=== PATIENT | male | born 1995 | race Caucasian/White ===

== ENCOUNTER 2020-02-21 12:07 | Emergency (ER) | payer SELFPAY ==
[2020-02-21 12:10] VITALS: BP 123/73; PULSE 91; RESP 18; TEMP 36.7; O2SAT 99; BMI 20.3
--- NOTE | 2020-02-21 12:10 | ED_ITS ---
HPI - Ear Problem General: Chief complaint: General Medical Stated complaint: rash/earache Time Seen by Provider: 02/21/20 12:10 Source: patient Mode of arrival: ambulatory Limitations: no limitations History of Present Illness: HPI Narrative: Patient comes in with a patchy rash that extends all over his body but spares the soles and palms. Patient reports that started about 6 to 8 weeks ago but he is also felt ill and tired since that time. Patient appears well. Patient appears in no acute distress. Patient denies any recent tick bites, and denies any fever at this time. MD Complaint: ear pain Location: left ear Review of Systems General: Reports: 10 or more systems reviewed and unremarkable except in HPI and below ENMT: Reports: change in hearing (left) PFSH ED PFSH: Social History Smoking and tobacco status: former smoker Physical Exam Const: COMMON NORMALS: no acute distress and patient oriented x3 GENERAL APPEARANCE: cooperative HENMT: COMMON NORMALS: normocephalic, TM's normal bilaterally and Normal external nose present HEAD & SCALP: normal to inspection and normocephalic NOSE: Normal external nose present TYMPANIC MEMBRANE: TM's normal bilaterally and other (Wax is noted to the 7 o'clock position of the tympanic membrane partially occluding the lower third of the membrane in the area. Otherwise the tympanic membrane is clear without any signs of redness.) MOUTH: Normal oral and palatal mucosa present THROAT: posterior oropharynx normal Eye: GENERAL EYE: appearance normal, both eyes and all related structures Neck/C-Spine: COMMON NORMALS: full ROM Lymph: LYMPHATIC: no lymphadenopathy noted Chest: COMMONS NORMALS: normal inspection of the chest Resp: COMMON NORMALS: normal respiratory effort EFFORT & INSPECTION: Yes able to speak in complete sentences Cardio: COMMON NORMALS: regular rate and regular rhythm RATE: regular rate RHYTHM: regular rhythm GI: COMMON NORMALS: non-tender : COMMON NORMALS: Yes no CVA tenderness BLADDER/KIDNEY EXAM: Yes no CVA tenderness Back/Pelvis: COMMON NORMALS: no CVA tenderness and thoracic and lumbar spine normal to inspection Extremity: COMMON NORMALS: normal to inspection Neuro: COMMON NORMALS: patient oriented x3 and moves all extremities Psych: COMMON NORMALS: mental status grossly normal and cooperative Skin: NARRATIVE SKIN EXAM: Patient has a generalized plaque-like rash to the entire body. Appears psoriatic. No rashes noted to the palms or soles of the feet. Respirations are even lungs are clear to auscultation. Course Vital Signs: Vital signs: Vital Signs Temperature 98.0 F 02/21/20 12:10 Pulse Rate 91 02/21/20 12:10 Respiratory Rate 18 02/21/20 12:10 Blood Pressure 123/73 02/21/20 12:10 Pulse Oximetry 99 02/21/20 12:10 MDM - Ear MDM Narrative: Medical decision making narrative: Patient comes in today with persistent rash for about 6 to 8 weeks. Patient cannot recall a tick bite prior to the rash or 1 the season so far. Patient does report a sore throat about 10 to 12 weeks ago. Respirations are even lungs are clear to auscultation. Rash has some mild plaque to it but otherwise encompasses the body extremities neck and extends up into the scalp. Vital signs are normal. Patient does have some significant cervical lymphadenopathy. Differential diagnosis includes guttate psoriasis, pityriasis rosea, [employer] spotted fever, or secondary syphilis. Labs showed the patient had elevated liver enzymes, CBC was insignificant, outstanding labs include [employer] spotted fever panel, ASO, and hepatitis panel. Will start patient on doxycycline 100 mg twice a day for 14 days. Patient also given some triamcinolone. Suspect psoriasis-like illness such as guttate due to upper respiratory infection flare. Either or the treatment should be the same with antibiotic for and steroid cream for discomfort. Patient reports understanding agreed to plan. Lab Data: Labs: Lab Results 02/21/20 02/21/20 Range/Units 12:32 12:32 WBC 7.6 (4.0-10.0) 10^3/ uL RBC 4.42 (4.1-5.3) 10^6/u L Hgb 13.3 (11.7-16.6) g/dL Hct 40.6 L (42.0-52.0) % MCV 91.9 (80-94) fL MCH 30.1 (28.0-34.0) pg MCHC 32.8 (30.0-36.0) g/dL RDW 12.4 (12.1-15.1) % Plt Count 296 (130-400) 10^3/c mm MPV 8.8 (7.4-10.4) fL Neut % (Auto) 70.0 % Lymph % (Auto) 20.7 % Taney % (Auto) 5.7 % Eos % (Auto) 2.6 % Baso % (Auto) 0.7 % Neut # (Auto) 5.3 (1.8-7.7) 10^3/u L Lymph # (Auto) 1.6 (0.8-4.8) 10^3/u L Taney # (Auto) 0.4 (0.2-0.9) 10^3/u L Eos # (Auto) 0.2 (0.0-0.8) 10^3/u L Baso # (Auto) 0.1 (0.0-0.1) 10^3/u L Nucleated RBC % (a uto) 0 % Nucleated RBCs # 0.0 /100WBC Sodium 137 (136-145) mmol/L Potassium 4.1 (3.5-5.1) mmol/L Chloride 99 (98-107) mmol/L Carbon Dioxide 26 (22-29) mmol/L Anion Gap 16.1 (5-19) BUN 9 (6-20) mg/dL Creatinine 0.7 (0.7-1.2) mg/dL GFR Calculation 136.3 H (90-130) mL/min Glucose 98 (65-115) mg/dL Calculated Osmolal ity 280 L (285-295) mOsm/k g Calcium 9.0 (8.5-10.5) mg/dL Total Bilirubin 0.3 (0.15-1.2) mg/dL AST 55 H (0-40) U/L ALT 82 H (0-41) U/L Alkaline Phosphata se 911 H (40-130) IU/L Total Protein 8.3 (6.6-8.7) g/dL Albumin 4.1 (3.5-5.2) g/dL Globulin 4.2 (1.3-4.6) g/dL Discharge Plan Discharge Patient Disposition: Home, Self-Care Clinical Impression: Guttate psoriasis, Otalgia of left ear Condition: Stable Prescriptions: New triamcinolone acetonide 0.1 % cream 1 applic TOPICAL BID Qty: 80 RF: 1 doxycycline hyclate 100 mg capsule 100 mg PO BID 14 Days Qty: 28 RF: 0 Discontinued doxycycline monohydrate 100 mg capsule 100 mg PO BID 10 Days Qty: 20 RF: 0 Discharge Orders: Discharge Order (Routine); Ordered 02/21/20 Ordered By: Popeye Austin Discharge Diet: Usual diet Discharge Activity: Increase activity as tolerated Activity Restrictions/Additional Instructions: Drink plenty of water with medications. Apply a pea-sized portion of triamcinolone cream to the palm of your hand squirt some good emollient lotion and then spread evenly across the body repeat until the entire body has been covered with the lotion and steroid cream mix. Twice a day with the steroid cream and lotion. Follow-up with primary care in 1 week. Case management will arrange for you to follow-up with warehouse production worker. Return to the ER for high fever or worsening symptoms. Coding Level of Care Code ED Temporary Help Agency Referral Clerk for Eliel Espino Exam Comprehensive
[2020-02-21 12:46] LABS: Basophils # 0.1 10^3/uL (0.0-0.1); Basophils % 0.7 %; Eosinophils # 0.2 10^3/uL (0.0-0.8); Eosinophils % 2.6 %; Hematocrit 40.6 % (42.0-52.0); Hemoglobin 13.3 g/dL (11.7-16.6); Lymphocytes # 1.6 10^3/uL (0.8-4.8); Lymphocytes % 20.7 %; Mean Corpuscular HGB Conc 32.8 g/dL (30.0-36.0); Mean Corpuscular Hemoglobin 30.1 pg (28.0-34.0); Mean Corpuscular Volume 91.9 fL (80-94); Mean Platelet Volume 8.8 fL (7.4-10.4); Monocytes # 0.4 10^3/uL (0.2-0.9); Monocytes % 5.7 %; Neutrophils # 5.3 10^3/uL (1.8-7.7); Nucleated Red Blood Cells % 0 %; Platelet Count 296 10^3/cmm (130-400); Red Blood Count 4.42 10^6/uL (4.1-5.3); Red Cell Distribution Width 12.4 % (12.1-15.1); White Blood Count 7.6 10^3/uL (4.0-10.0)
[2020-02-21 13:02] LABS: Alanine Aminotransferase 82 U/L (0-41); Albumin Level 4.1 g/dL (3.5-5.2); Alkaline Phosphatase 911 IU/L (40-130); Anion Gap 16.1 (5-19); Aspartate Amino Transferase 55 U/L (0-40); Blood Urea Nitrogen 9 mg/dL (6-20); Carbon Dioxide 26 mmol/L (22-29); Chloride 99 mmol/L (98-107); Globulin 4.2 g/dL (1.3-4.6); Glomerular Filtration Rate 136.3 mL/min (90-130); Glucose 98 mg/dL (65-115); Osmolality Calculated 280 mOsm/kg (285-295); Potassium 4.1 mmol/L (3.5-5.1); Sodium 137 mmol/L (136-145); Total Bilirubin 0.3 mg/dL (0.15-1.2); Total Protein 8.3 g/dL (6.6-8.7)
[2020-02-21 13:20] VITALS: BP 133/82; PULSE 79; RESP 16; O2SAT 99
[2020-02-21 14:08] LABS: Rapid Plasma Reagin Syphilis Reactive (Nonreactive)
[2020-02-21 14:11] LABS: Hepatitis A Antibody IgM Non-Reactive (Nonreactive); Hepatitis B Core IgM Non-Reactive (Nonreactive); Hepatitis B Surface Antigen Non-Reactive (Nonreactive); Hepatitis C Virus Antibody Non-Reactive (Nonreactive)
[2020-02-21 14:16] LABS: C Reactive Protein 35.4 mg/L (0.0-4.9)
[2020-02-22 08:51] LABS: Anti-streptolysin O 158 IU/mL (<200)
--- NOTE | 2020-02-22 09:39 | DCPLANNER ---
regional loss prevention manager had message to schedule a follow up appointment for patient with a real estate associate. regional loss prevention manager called patient at [phone], unable to speak with patient, a voicemail was left for patient to return spring encaser phone call.
[2020-02-27 16:57] LABS: Rocky Mountain IgG NOT DETECTED; Rocky Mountain IgM NOT DETECTED
== END 2020-02-21 13:20 | disposition home or self-care (01) ==
LOC: ER 15:29
PROVIDERS: Emergency Provider Nurse Practitioner Family
DX: L40.4 Guttate psoriasis (principal); H92.02 Otalgia, left ear; Z87.891 Personal history of nicotine dependence
CPT/HCPCS: 12345; 36415; 80053; 80074; 85025; 86060; 86140; 86592; 86757; 99281; 99282